=== PATIENT | female | born 1960 | race Caucasian/White ===

== ENCOUNTER 2020-10-01 07:05 | Day surgery (SDC) | payer OTHER ==
[~2020-10-01] VITALS: Ht 165.1 cm; Wt 73.6 kg
[2020-10-01] VITALS (11 sets, daily range): BP systolic 114–163; BP diastolic 57–89; PULSE 73–116; TEMP 97–98.1
--- NOTE | 2020-10-01 07:25 | NUR ---
Initial visit; Patient thanked Director Database for offering prayer and God's blessings prior to her surgical procedure.
[2020-10-01] MEDS ORDERED: METHOTREXA2.5 MG/TAB PO (08:42)
[2020-10-01] MEDS ORDERED: PLAQUENIL 200M200 MG PO (08:46)
[2020-10-01] MEDS ORDERED: PROCARDIA XL 3030 MG PO (08:47)
[2020-10-01] MEDS ORDERED: FOLIC ACID 40400 MCG PO (08:47)
[2020-10-01] MEDS ORDERED: TIROSINT88 MC1 PO (08:48)
[2020-10-01] MEDS ORDERED: NORCO 325 MG-51 TAB PO (10:24)
[2020-10-01] MEDS ORDERED: COLACE 100100 MG/CAP PO (10:24)
--- NOTE | 2020-10-01 18:23 | NUR ---
Patient resting in bed, at bedside. Post op checks completed. Patient is alert and oriented, answers questions appropriately. Patient reports pain is well controlled at this time, incisions are well approximated and hylton in place per order draining clear urine with slight green tinge. Patient is tolerating oral intake well, no indication of nausea, diet advanced per order.Patient denies needs, call light within reach.
--- NOTE | 2020-10-01 20:00 | NUR ---
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 Assessment complete. A&Ox3. Denies pain/nausea/shortness of breath. Tolerating diet. Lap sites x5 to abdomen-edges well approximated-no drainage noted. Jones cath with light green urine. Up out of bed at this time. Ambulated 800 feet-tolerated well. Denies questions/concerns. Call light in reach. Will monitor.
--- NOTE | 2020-10-02 00:30 | NUR ---
Resting eyes closed. No s/s of pain noted. Rated pain 0/10 at 2350 with scheduled tylenol dose.
[2020-10-02 03:29] VITALS: BP 117/67; PULSE 83; TEMP 97.6
--- NOTE | 2020-10-02 05:38 | NUR ---
Rested well this shift. Scheduled tylenol for pain. Denies nausea/shortenss of breath. VS remained stable. Ambulated in the hallway without difficulty. Jones cath with clear yellow urine. INTd. 5 lap sites-edges well approximated-no redness/drainage noted. Denies current needs. Call light in reach. Will monitor.
[2020-10-02 06:37] LABS: BASO % 0.4 % (0.0-2.0); GRAN # 6.1 (1.4-6.5); GRAN % 73.4 % (42.2-75.2); HEMOGLOBIN 11.8 g/dl (12.5-16.0); LYMPH # 1.4 (1.2-3.4); LYMPH % 16.7 % (20.0-51.0); MEAN CELL VOLUME 96 fl (80.0-100.0); MEAN CORPUSCULAR HEMOGLOBIN 32 pg (27.0-31.0); MEAN CORPUSCULAR HGB CONC 33 g/dl (33.0-37.0); MEAN PLATELET VOLUME 9.3 fl (7.4-10.4); MONO # 0.8 (0.1-0.6); MONO % 9.1 % (1.7-9.3); PLATELET COUNT 317 K/mm3 (130-400); RED BLOOD COUNT 3.74 M/mm3 (4.10-5.30); REDCELL DISTRIBUTION WIDTH-CV 13.2 % (11.5-14.5)
[2020-10-02 06:43] LABS: HEMATOCRIT 35.7 % (37.0-47.0)
[2020-10-02 06:46] LABS: CALCIUM 8.7 mg/dL (8.4-10.2); CREATININE, serum 0.83 (0.52-1.25); POTASSIUM 3.7 mmol/L (3.4-5.0)
[2020-10-02 07:25] VITALS: BP 131/73; PULSE 83; TEMP 98.5
--- NOTE | 2020-10-02 08:00 | NUR ---
PATIENT IS A&O. VSS. RATES PAIN AT 4/10 WITH MOVEMENT AND REQUESTING PAIN MEDS BEFORE DISCHARGE LATER TODAY. GAVE PRN ULTRAM WITH AM MEDS. DC'D BOWDEN PER ORDERS. BOWDEN CATH TIP INTACT AND PATIENT TOLERATED WELL. HEAD TO TOE ASSESSMENT COMPLETE. NO OTHER NEEDS AT THIS TIME. PATIENT INDEPENDENT IN ROOM
--- NOTE | 2020-10-02 09:53 | NUR ---
Follow-up visit; prayed with patient prior to her surgical procedure and am pleased to see that she is preparing to be discharged from the hospital today. Patient and her thanked for follow-up and her prayers.
--- NOTE | 2020-10-02 12:10 | NUR ---
PATIENT DISCHARGING HOME. PATIENT WAS ABLE TO VOID THREE TIMES POST BOWDEN REMOVAL, 100CC AT A TIME. GAVE DISCHARGE INSTRUCTIONS, E-SCRIPTS SENT, AND DISCUSSED F/U APT. ANSWERED QUESTIONS/CONCERNS. PATIENT IS DRESSED, PACKED AND DISCHARGED.
== END 2020-10-02 12:10 | disposition home or self-care (01) ==
LOC: INPTSU 07:05 → SURG 07:05 → SDCO 07:05 → INPTSU 07:06 → SURG 07:30 → EDSTATUS 07:30 → SURG 09:30 → SDCO 10-02 12:10
PROVIDERS: Urology
DX: N99.3 Prolapse of vaginal vault after hysterectomy (principal); N36.42 Intrinsic sphincter deficiency (ISD); N32.81 Overactive bladder; N39.41 Urge incontinence; I97.3 Postprocedural hypertension; E03.9 Hypothyroidism, unspecified; M35.1 Other overlap syndromes; I73.00 Raynaud's syndrome without gangrene; M19.90 Unspecified osteoarthritis, unspecified site; Z79.890 Hormone replacement therapy; Z79.899 Other long term (current) drug therapy; Z88.0 Allergy status to penicillin; Z88.2 Allergy status to sulfonamides; Z79.1 Long term (current) use of non-steroidal anti-inflammatories (NSAID)
CPT/HCPCS: OP; 99222; 99231-AI; A4314; A9284; C1781; J0360; J1100; J1650; J2405; J2704; J3010; J7120